=== PATIENT | female | born 1970 | race African-American/Black ===

== ENCOUNTER 2017-05-16 09:30 | Emergency (ER) | payer OTHER ==
[~2017-05-16 09:30] MED LIST: DICY20TA30 PO; PROM25TA10 PO
[2017-05-16 09:46] VITALS: BP 130/66
[2017-05-16] MEDS ORDERED: SULF1TAB24 PO (10:12)
--- NOTE | 2017-05-16 10:12 | PHYS DOC ---
Past Medical History Past Medical History: Hypertension Additional Past Medical Histor: ADHD Past Surgical History: Cholecystectomy, Alcohol Use: Heavy Drug Use: Cocaine Social History Narrative: denies at this time. Adult General Chief Complaint Chief Complaint: INSECT BITE HPI HPI Patient is a 47 year old female presents to the emergency department stating that she has an area on her right outer calf that appears to be red and swollen and tender. She states that she believes she was bit by a spider. She states this occurred approximately 3 days ago. She states that she's had some yellow drainage coming from the area. She denies any numbness or tingling going down into her lower extremity. She states her last tetanus shot was approximately one year ago. She denies fever, chills or any nausea vomiting. Review of Systems Review of Systems Constitutional: Denies fever or chills [] Eyes: Denies change in visual acuity, redness, or eye pain [] HENT: Denies nasal congestion or sore throat [] Respiratory: Denies cough or shortness of breath [] Cardiovascular: No additional information not addressed in HPI [] GI: Denies abdominal pain, nausea, vomiting, bloody stools or diarrhea [] : Denies dysuria or hematuria [] Musculoskeletal: Denies back pain or joint pain [] Integument: Denies rash or skin lesions. Right lower outer leg bit by a spider Neurologic: Denies headache, focal weakness or sensory changes [] Endocrine: Denies polyuria or polydipsia [] Allergies Allergies Allergies Coded Allergies Type Severity Reaction Last Updated Verified latex Allergy Intermediate 04/16/16 Yes Physical Exam Physical Exam Constitutional: Well developed, well nourished, no acute distress, non-toxic appearance. [] HENT: Normocephalic, atraumatic, bilateral external ears normal, oropharynx moist, no oral exudates, nose normal. [] Eyes: PERRLA, EOMI, conjunctiva normal, no discharge. [] Neck: Normal range of motion, no tenderness, supple, no stridor. [] Cardiovascular:Heart rate regular rhythm Lungs & Thorax: No respiratory distress noted Skin: Warm, dry, no erythema, no rash. Right lower third leg at the posterior lower aspect of the knee area appears to be red warm swollen tender to touch with no fluctuance noted. Area appears to be very taut. Back: No tenderness Extremities: No tenderness, no cyanosis, no clubbing, ROM intact, no edema. [] Neurologic: Alert and oriented X 3, normal motor function, normal sensory function, no focal deficits noted. [] Psychologic: Affect normal, judgement normal, mood normal. [] Current Patient Data Vital Signs Vital Signs Date Time Temp Pulse Resp B/P (MAP) Pulse Ox O2 Delivery O2 Flow Rate FiO2 05/16/17 09:46 97.7 54 20 99 Room Air 97.7 EKG EKG [] Radiology/Procedures Radiology/Procedures [] Course & Med Decision Making Course & Med Decision Making Pertinent Labs and Imaging studies reviewed. (See chart for details) Patient will be placed on Bactrim with recommendations for warm moist packs to the area 5 times a day. Patient will be discharged home in stable condition with recommendations for Tylenol or ibuprofen for pain and discomfort. Elevation as much as possible. Patient will be discharged home in stable condition. Signs and symptoms to return back to emergency department as been provided. All questions and concerns been answered at the patient's bedside. [] Dragon Disclaimer Dragon Disclaimer This electronic medical record was generated, in whole or in part, using a voice recognition dictation system. Departure Departure Impression: Primary Impression: Cellulitis and abscess of right leg Disposition: 01 HOME, SELF-CARE Condition: STABLE Referrals: SANDRA WATERS MD (PCP) Patient Instructions: Cellulitis, [id number] Additional Instructions: Activity as tolerated. Medications as prescribed. Warm moist packs to the area 5 times a day. Elevation as much as possible. Tylenol or ibuprofen for pain and discomfort. Follow-up through primary care physician in the next 3-5 days. Return back to emergency prior signs symptoms of become worse. Scripts Sulfamethoxazole/Trimethoprim (BACTRIM DS TABLET) 1 Each Tablet 1 TAB PO BID, #20 TAB Prov: RONEL COTA APRN 05/16/17 RONEL COTA APRN May 16, 2017 10:12
== END 2017-05-16 10:20 | disposition home or self-care (01) ==
LOC: ER 09:30
DX: L03.115 Cellulitis of right lower limb (principal); L02.415 Cutaneous abscess of right lower limb; I10 Essential (primary) hypertension; F90.9 Attention-deficit hyperactivity disorder, unspecified type; F10.10 Alcohol abuse, uncomplicated; Z91.040 Latex allergy status
CPT/HCPCS: 99283

== ENCOUNTER 2017-05-24 16:23 | Inpatient (IN) | payer OTHER ==
[~2017-05-24] VITALS: Ht 160 cm; Wt 67.2 kg
[~2017-05-24 16:23] MED LIST changes: +SULF1TAB24 PO
--- NOTE | 2017-05-24 16:40 | PHYS DOC ---
Past Medical History Past Medical History: Hypertension Additional Past Medical Histor: ADHD Past Surgical History: Cholecystectomy, , Hysterectomy Alcohol Use: Heavy Drug Use: Cocaine Adult General Chief Complaint Chief Complaint: LOWER EXTREMITY SWELLING HPI HPI Patient is a 47 year old female presents to the emergency department with a history of spider bite to the right lower posterior/outer calf. Patient was seen on 05/16 and placed on bactrim. She returns today with c/o leg feeling tight. States the pain has become worse and has increased in redness. No drainage or discharge from the site. Denies numbness or tingling in lower extremity. Peripheral pulse 2+. Patient states that her last tetanus shot was approximately one year ago. Review of Systems Review of Systems Constitutional: Denies fever or chills [] Eyes: Denies change in visual acuity, redness, or eye pain [] HENT: Denies nasal congestion or sore throat [] Respiratory: Denies cough or shortness of breath [] Cardiovascular: No additional information not addressed in HPI [] GI: Denies abdominal pain, nausea, vomiting, bloody stools or diarrhea [] : Denies dysuria or hematuria [] Musculoskeletal: Denies back pain or joint pain [] Integument: Denies rash or skin lesions. Redness, warmth tenderness increase pain to right lower leg. Neurologic: Denies headache, focal weakness or sensory changes [] Endocrine: Denies polyuria or polydipsia [] Current Medications Current Medications Current Medications Medications (Trade) Dose Ordered Sig/Alberto Start Time Stop Time Status Last Admin Dose Admin Acetaminophen/ Hydrocodone Bitart (Lortab 5/325) 1 tab Q4HRS PRN 05/24/17 16:45 UNV Clindamycin Phosphate 50 ml @ 100 mls/hr Q8HRS 05/24/17 22:00 UNV Allergies Allergies Allergies Coded Allergies Type Severity Reaction Last Updated Verified latex Allergy Intermediate 04/16/16 Yes Physical Exam Physical Exam Constitutional: Well developed, well nourished, no acute distress, non-toxic appearance. [] HENT: Normocephalic, atraumatic, bilateral external ears normal, oropharynx moist, no oral exudates, nose normal. [] Eyes: PERRLA, EOMI, conjunctiva normal, no discharge. [] Neck: Normal range of motion, no tenderness, supple, no stridor. [] Cardiovascular:Heart rate regular rhythm, no murmur [] Lungs & Thorax: Bilateral breath sounds clear to auscultation [] Skin: Warm, dry, no erythema, no rash. Patient with a area on the right lower calf area that ranges from the midcalf up to the creases the back of the knee lateral and posterior area of the leg that appears to be red warm very tired with a white center. No drainage or discharge coming from the site. Back: No tenderness Extremities: No tenderness, no cyanosis, no clubbing, ROM intact, no edema. Lower extremity pulses on the right are 2+ cap refill brisk less than 2 seconds. Patient was able to ambulate with a good steady gait. Neurologic: Alert and oriented X 3, normal motor function, normal sensory function, no focal deficits noted. [] Psychologic: Affect normal, judgement normal, mood normal. [] Current Patient Data Vital Signs Vital Signs Date Time Temp Pulse Resp B/P (MAP) Pulse Ox O2 Delivery O2 Flow Rate FiO2 05/24/17 16:32 98.8 63 18 129/76 (93) 99 Room Air 98.8 EKG EKG [] Radiology/Procedures Radiology/Procedures [] Course & Med Decision Making Course & Med Decision Making Pertinent Labs and Imaging studies reviewed. (See chart for details) CBC, CMP, blood cultures, saline lock, IV antibiotics, ultrasound have been ordered at this time. Patient will be placed on clindamycin call his been placed to the hospitalist for admission. Patient will be provided with by mouth pain medication, hydrocodone. [id number] spoke with in regards to admission for this patient. She agrees with admission at this time. She is aware the CMP he, CBC, cultures, ultrasound are pending at this time. Patient will be placed on clindamycin with orders placed. She'll also be provided with hydrocodone for pain and discomfort. Patient is aware of admission into the hospital for IV antibiotics. [] Dragon Disclaimer Dragon Disclaimer This electronic medical record was generated, in whole or in part, using a voice recognition dictation system. Departure Departure Referrals: SANDRA WATERS MD (PCP) RONEL COTA APRN May 24, 2017 16:40
[2017-05-24 17:07] LABS: BASO # 0.1 x10^3/uL (0.0-0.2); BASO % 1 % (0-3); EOS % 3 % (0-3); HEMATOCRIT 35.7 % (36.0-47.0); LYMPH # 3.6 x10^3/uL (1.0-4.8); LYMPH % 34 % (24-48); MEAN CORPUSCULAR HEMOGLOBIN 32 pg (25-35); MEAN CORPUSCULAR HGB CONC 34 g/dL (31-37); MEAN CORPUSCULAR VOLUME 94 fL (79-100); MONO % 6 % (0-9); NEUT % 57 % (31-73); PLATELET COUNT 372 x10^3/uL (140-400); RED CELL DISTRIBUTION WIDTH 14.4 % (11.5-14.5); WHITE BLOOD COUNT 10.8 x10^3/uL (4.0-11.0)
[2017-05-24] MEDS: HYDROcodone/APAP 5/325MG 1 TAB TABLET PO PRN (17:12)
[2017-05-24] MEDS: CLINDAMYCIN 600MG PREMIX 50 ML IV SCH (17:19)
[2017-05-24 17:36] LABS: CALCIUM 9.2 mg/dL (8.5-10.1); GFR 71.6; POTASSIUM 3.7 mmol/L (3.5-5.1)
[2017-05-24 17:39] LABS: ALBUMIN 3.3 g/dL (3.4-5.0); ALBUMIN/GLOBULIN RATIO 0.9 (1.0-1.7); TOTAL BILIRUBIN 0.1 mg/dL (0.2-1.0)
--- NOTE | 2017-05-24 17:59 | RAD ---
Examination: Limited ultrasound posterior right calf. HISTORY: History of lower lobe lower leg cellulitis, infection COMPARISON: None available FINDINGS: Ultrasound of the posterior calf in the region of swelling demonstrates diffuse edema in the soft tissue likely secondary to cellulitis. There is small amount of fluid identified along the soft tissue measuring 2.6 cm in longest dimension probably nonspecific edema secondary to infection. A focal well-formed abscess is not clearly identified. IMPRESSION: Diffuse edema identified in the posterior lower calf region probably secondary to soft tissue infection or cellulitis. Electronically signed by: Foster Robins MD (05/24/2017 5:55 PM) [facility]
[2017-05-24] MEDS ORDERED: KETOROLAC TROMETHAMINE 30 MG/ML INJ. IV PRN (18:45)
[2017-05-24] MEDS ORDERED: MORPHINE SULFATE 2 MG/ML DISP.SYRIN. IV PRN (18:45)
--- NOTE | 2017-05-24 18:52 | PDOC1 ---
History and Physical Date of Admission Date of Admission DATE: 05/24/17 TIME: 18:45 Identification/Chief Complaint Chief Complaint R calf swelling/wound worse Problems: Source Source: Caregiver, Chart review, Patient History of Present Illness History of Present Illness 47 y.o AA female, non diabetic, only HTN otherwise controlled, a week ago maybe started as a bite in posterior R calf, went to ER, dcd on PO bactrim. BUt swelling got worse, at one point drained some pus? or some fluid, reported low grade temp at home, Came back to ER and swelling and warmth more remarkable hence admitted for iV abx. US is neg for focal abscess but just shows diffuse subcutaneous swelling, WIll ask RN to connor the swelling so we can assess its improvement with IV abx started at ER. No pen allergies. BC drawn at ER prior to abx. Past Medical History Cardiovascular: No pertinent hx, HTN Pulmonary: No pertinent hx GI: No pertinent hx Heme/Onc: No pertinent hx Hepatobiliary: No pertinent hx Psych: No pertinent hx Rheumatologic: No pertinent hx Infectious disease: Bacterial vaginosis ENT: No pertinent hx Renal/: No pertinent hx Endocrine: No pertinent hx Dermatology: No pertinent hx Past Surgical History Past Surgical History: Hysterectomy, No pertinent history Family History Family History: High Cholestrol, Hypertension Social History Smoke: No ALCOHOL: none Drugs: None Current Medications Current Medications Current Medications Clindamycin Phosphate 50 ml @ 100 mls/hr Q8H IV Last administered on 05/24/17 17:19; Start 05/24/17 at 17:00 Acetaminophen/ Hydrocodone Bitart (Lortab 5/325) 1 tab PRN Q4HRS PRN PO pain Last administered on 05/24/17 17:12; Start 05/24/17 at 16:45 Active Scripts Active Bactrim Ds Tablet (Sulfamethoxazole/Trimethoprim) 1 Each Tablet 1 Tab PO BID Bentyl (Dicyclomine Hcl) 20 Mg Tablet 20 Mg PO QID Promethazine Hcl 25 Mg Tablet 1 Tab PO PRN Q6HRS Allergies Allergies: Coded Allergies: latex (Verified Allergy, Intermediate, 04/16/16) ROS Review of System as per HPI,a ll else is neg Physical Exam General: Alert, Oriented X3, Cooperative, No acute distress HEENT: Atraumatic, PERRLA, EOMI Lungs: Clear to auscultation, Normal air movement Heart: S1S2, RRR, no thrills, no rubs, no gallops, no murmurs Cardiovascular: S1, S2 Breasts: Normal, Rt breast nml w/o mass, Lt breast nml w/o mass, Nipples normal Abdomen: Normal bowel sounds, Soft, No tenderness, No hepatosplenomegaly, No masses Rectal Exam: not examined Skin: Other (RT posterior calf is warm, swollen and very tender to touch with visible punctum draining some milky fluid, tender when pressed, no María's sign) Neuro: Normal gait, Normal speech, Strength at 5/5 X4 ext, Normal tone, Sensation intact, Cranial nerves 3-12 NL, Reflexes 2+ Vitals Vitals Vital Signs Date Time Temp Pulse Resp B/P (MAP) Pulse Ox O2 Delivery O2 Flow Rate FiO2 05/24/17 16:32 98.8 63 18 129/76 (93) 99 Room Air 98.8 Labs Labs Laboratory Tests Test 05/24/17 16:50 White Blood Count 10.8 x10^3/uL (4.0-11.0) Red Blood Count 3.80 x10^6/uL (3.50-5.40) Hemoglobin 12.0 g/dL (12.0-15.5) Hematocrit 35.7 % (36.0-47.0) Mean Corpuscular Volume 94 fL (79-100) Mean Corpuscular Hemoglobin 32 pg (25-35) Mean Corpuscular Hemoglobin Concent 34 g/dL (31-37) Red Cell Distribution Width 14.4 % (11.5-14.5) Platelet Count 372 x10^3/uL (140-400) Neutrophils (%) (Auto) 57 % (31-73) Lymphocytes (%) (Auto) 34 % (24-48) Monocytes (%) (Auto) 6 % (0-9) Eosinophils (%) (Auto) 3 % (0-3) Basophils (%) (Auto) 1 % (0-3) Neutrophils # (Auto) 6.1 x10^3uL (1.8-7.7) Lymphocytes # (Auto) 3.6 x10^3/uL (1.0-4.8) Monocytes # (Auto) 0.7 x10^3/uL (0.0-1.1) Eosinophils # (Auto) 0.3 x10^3/uL (0.0-0.7) Basophils # (Auto) 0.1 x10^3/uL (0.0-0.2) Sodium Level 140 mmol/L (136-145) Potassium Level 3.7 mmol/L (3.5-5.1) Chloride Level 103 mmol/L (98-107) Carbon Dioxide Level 30 mmol/L (21-32) Anion Gap 7 (6-14) Blood Urea Nitrogen 14 mg/dL (7-20) Creatinine 1.0 mg/dL (0.6-1.0) Estimated GFR (Cockcroft-Gault) 71.6 BUN/Creatinine Ratio 14 (6-20) Glucose Level 89 mg/dL (70-99) Calcium Level 9.2 mg/dL (8.5-10.1) Total Bilirubin 0.1 mg/dL (0.2-1.0) Aspartate Amino Transf (AST/SGOT) 18 U/L (15-37) Alanine Aminotransferase (ALT/SGPT) 26 U/L (14-59) Alkaline Phosphatase 87 U/L (46-116) Total Protein 7.0 g/dL (6.4-8.2) Albumin 3.3 g/dL (3.4-5.0) Albumin/Globulin Ratio 0.9 (1.0-1.7) Laboratory Tests Test 05/24/17 16:50 White Blood Count 10.8 x10^3/uL (4.0-11.0) Red Blood Count 3.80 x10^6/uL (3.50-5.40) Hemoglobin 12.0 g/dL (12.0-15.5) Hematocrit 35.7 % (36.0-47.0) Mean Corpuscular Volume 94 fL (79-100) Mean Corpuscular Hemoglobin 32 pg (25-35) Mean Corpuscular Hemoglobin Concent 34 g/dL (31-37) Red Cell Distribution Width 14.4 % (11.5-14.5) Platelet Count 372 x10^3/uL (140-400) Neutrophils (%) (Auto) 57 % (31-73) Lymphocytes (%) (Auto) 34 % (24-48) Monocytes (%) (Auto) 6 % (0-9) Eosinophils (%) (Auto) 3 % (0-3) Basophils (%) (Auto) 1 % (0-3) Neutrophils # (Auto) 6.1 x10^3uL (1.8-7.7) Lymphocytes # (Auto) 3.6 x10^3/uL (1.0-4.8) Monocytes # (Auto) 0.7 x10^3/uL (0.0-1.1) Eosinophils # (Auto) 0.3 x10^3/uL (0.0-0.7) Basophils # (Auto) 0.1 x10^3/uL (0.0-0.2) Sodium Level 140 mmol/L (136-145) Potassium Level 3.7 mmol/L (3.5-5.1) Chloride Level 103 mmol/L (98-107) Carbon Dioxide Level 30 mmol/L (21-32) Anion Gap 7 (6-14) Blood Urea Nitrogen 14 mg/dL (7-20) Creatinine 1.0 mg/dL (0.6-1.0) Estimated GFR (Cockcroft-Gault) 71.6 BUN/Creatinine Ratio 14 (6-20) Glucose Level 89 mg/dL (70-99) Calcium Level 9.2 mg/dL (8.5-10.1) Total Bilirubin 0.1 mg/dL (0.2-1.0) Aspartate Amino Transf (AST/SGOT) 18 U/L (15-37) Alanine Aminotransferase (ALT/SGPT) 26 U/L (14-59) Alkaline Phosphatase 87 U/L (46-116) Total Protein 7.0 g/dL (6.4-8.2) Albumin 3.3 g/dL (3.4-5.0) Albumin/Globulin Ratio 0.9 (1.0-1.7) VTE Prophylaxis Ordered VTE Prophylaxis Devices: Yes VTE Pharmacological Prophylaxi: Yes Assessment/Plan Assessment/Plan 1. RT posterior calf cellulitis and draining wound, minimal, no evidence of abscess on US - Agree with admission and starting systemic abx - connor the swelling so we can assess its improvement with IV abx - Held off sx consult as no visible drainable lesion on imaging, - may change pending her response to abx - follow BC - WOF GI upset or diarrhea with abx 2. HTN - controlled NO leukocytosis (WBC 20), no fevers MAy check ESR in next blood draw Seen at ER 6 MACO BEE MD May 24, 2017 18:52
[2017-05-24] MEDS ORDERED: PROMETHAZINE 12.5 MG TABLET. PO PRN (19:00)
[2017-05-24 19:30] VITALS: BP 143/67
[2017-05-24] MEDS: DICYCLOMINE HCL 10 MG CAPSULE PO SCH (20:01)
[2017-05-24 23:00] VITALS: BP 122/65
[2017-05-25] MEDS: CLINDAMYCIN 600MG PREMIX 50 ML IV SCH ×3 (00:30→17:23)
[2017-05-25 03:00] VITALS: BP 138/75
[2017-05-25 04:58] LABS: BASO # 0.1 x10^3/uL (0.0-0.2); BASO % 1 % (0-3); EOS % 4 % (0-3); HEMATOCRIT 34.3 % (36.0-47.0); HEMOGLOBIN 11.2 g/dL (12.0-15.5); LYMPH # 3.4 x10^3/uL (1.0-4.8); LYMPH % 38 % (24-48); MEAN CORPUSCULAR HEMOGLOBIN 31 pg (25-35); MEAN CORPUSCULAR HGB CONC 33 g/dL (31-37); MEAN CORPUSCULAR VOLUME 94 fL (79-100); MONO % 10 % (0-9); NEUT % 49 % (31-73); PLATELET COUNT 339 x10^3/uL (140-400); RED BLOOD COUNT 3.64 x10^6/uL (3.50-5.40); RED CELL DISTRIBUTION WIDTH 14.2 % (11.5-14.5); WHITE BLOOD COUNT 9.1 x10^3/uL (4.0-11.0)
[2017-05-25 05:25] LABS: CALCIUM 8.9 mg/dL (8.5-10.1); CREATININE 1.1 mg/dL (0.6-1.0); GFR 64.1
[2017-05-25] MEDS: HYDROcodone/APAP 5/325MG 1 TAB TABLET PO PRN ×2 (05:48→13:45)
[2017-05-25 07:00] VITALS: BP 134/62
[2017-05-25] MEDS: DICYCLOMINE HCL 10 MG CAPSULE PO SCH ×4 (09:26→21:00)
[2017-05-25 11:00] VITALS: BP 134/62
--- NOTE | 2017-05-25 11:11 | RAD ---
Right calf ultrasound, 05/25/2017: History: Swelling, possible spider bite The area of clinical concern in the posterior aspect of the upper calf was carefully scanned. There is a small, elongated, irregularly marginated hypoechoic area in the subcutaneous soft tissues extending along the superficial aspect of the calf musculature. It measures approximately 3 x 1.6 x 0.5 cm. The appearance suggests fluid such as a small hematoma, seroma or abscess. No other abnormality is seen.
--- NOTE | 2017-05-25 13:57 | PDOC2 ---
CONSULT Date of Consult Date of Consult DATE: 05/25/17 TIME: 13:54 Reason for Consult Reason for Consult: cellulitis Referring Physician Referring Physician: Dr Thakkar Identification/Chief Complaint Chief Complaint leg swelling Problems: Source Source: Chart review, Patient History of Present Illness Reason for Visit: Week history of right calf bite from insect/spider--developed drainage and swelling at home along with fevers and chills. Started on PO abx, however worsened and came back. Currently still having some pain, less swelling, and less drainage. Past Medical History Cardiovascular: No pertinent hx, HTN Pulmonary: No pertinent hx GI: No pertinent hx Heme/Onc: No pertinent hx Hepatobiliary: No pertinent hx Psych: No pertinent hx Rheumatologic: No pertinent hx Infectious disease: Bacterial vaginosis ENT: No pertinent hx Renal/: No pertinent hx Endocrine: No pertinent hx Dermatology: No pertinent hx Past Surgical History Past Surgical History: Hysterectomy, No pertinent history Family History Family History: High Cholestrol, Hypertension Social History No ALCOHOL: none Drugs: None Current Medications Current Medications Current Medications Clindamycin Phosphate 50 ml @ 100 mls/hr Q8H IV Last administered on 05/25/17 05:43; Start 05/24/17 at 17:00 Acetaminophen/ Hydrocodone Bitart (Lortab 5/325) 1 tab PRN Q4HRS PRN PO pain Last administered on 05/25/17 13:45; Start 05/24/17 at 16:45 Morphine Sulfate 2 mg PRN Q2HR PRN IV PAIN; Start 05/24/17 at 18:45 Ketorolac Tromethamine (Toradol) 30 mg PRN Q6HRS PRN IV PAIN Last administered on 05/24/17 20:01; Start 05/24/17 at 18:45; Stop 05/29/17 at 18:44 Dicyclomine HCl (Bentyl) 20 mg QID PO Last administered on 05/25/17 13:40; Start 05/24/17 at 21:00 Promethazine HCl (Phenergan) 25 mg PRN Q6HRS PRN PO NAUSEA/VOMITING; Start 05/24 at 19:00 Active Scripts Active Bactrim Ds Tablet (Sulfamethoxazole/Trimethoprim) 1 Each Tablet 1 Tab PO BID Bentyl (Dicyclomine Hcl) 20 Mg Tablet 20 Mg PO QID Promethazine Hcl 25 Mg Tablet 1 Tab PO PRN Q6HRS Allergies Allergies: Coded Allergies: latex (Verified Allergy, Intermediate, 04/16/16) ROS General: YES: Chills, Other (+ subjective fevers ) PSYCHOLOGICAL ROS: No: Anxiety, Depression Eyes: No Blurry vision, No Double vision HEENT: No: Heacaches, Sore Throat Hematological and Lymphatic: No: Bleeding Problems, Blood Clots Respiratory: No: Cough, Shortness of breath Cardiovascular: No Chest Pain, No Palpitations Gastrointestinal: No Nausea, No Abdominal Pain Genitourinary: No Dysuria, No Hematuria Musculoskeletal: Yes Joint Pain, Yes Muscle Pain Neurological: No Impaired Coord/balance, No Numbness/Tingling Skin: Yes Other (see hpi) Physical Exam General: Alert, Oriented X3, Cooperative, No acute distress HEENT: PERRLA, Mucous membr. moist/pink Lungs: Clear to auscultation, Normal air movement Heart: Regular rate, Normal S1, Normal S2, No murmurs Abdomen: Soft, No tenderness Extremities: Other (RLE calf with erythema and swelling, some drainage, no fluctuance ) Neuro: Normal speech, Sensation intact Psych/Mental Status: Mental status NL, Mood NL MUSCULOSKELETAL: No joint tenderness, No deformity Vitals VITALS Vital Signs Date Time Temp Pulse Resp B/P (MAP) Pulse Ox O2 Delivery O2 Flow Rate FiO2 05/25/17 13:45 Room Air 05/25/17 11:00 99.3 55 18 134/62 (86) 99 99.3 Labs Labs Laboratory Tests Test 05/24/17 16:50 05/25/17 04:29 White Blood Count 10.8 x10^3/uL (4.0-11.0) 9.1 x10^3/uL (4.0-11.0) Red Blood Count 3.80 x10^6/uL (3.50-5.40) 3.64 x10^6/uL (3.50-5.40) Hemoglobin 12.0 g/dL (12.0-15.5) 11.2 g/dL (12.0-15.5) Hematocrit 35.7 % (36.0-47.0) 34.3 % (36.0-47.0) Mean Corpuscular Volume 94 fL (79-100) 94 fL (79-100) Mean Corpuscular Hemoglobin 32 pg (25-35) 31 pg (25-35) Mean Corpuscular Hemoglobin Concent 34 g/dL (31-37) 33 g/dL (31-37) Red Cell Distribution Width 14.4 % (11.5-14.5) 14.2 % (11.5-14.5) Platelet Count 372 x10^3/uL (140-400) 339 x10^3/uL (140-400) Neutrophils (%) (Auto) 57 % (31-73) 49 % (31-73) Lymphocytes (%) (Auto) 34 % (24-48) 38 % (24-48) Monocytes (%) (Auto) 6 % (0-9) 10 % (0-9) Eosinophils (%) (Auto) 3 % (0-3) 4 % (0-3) Basophils (%) (Auto) 1 % (0-3) 1 % (0-3) Neutrophils # (Auto) 6.1 x10^3uL (1.8-7.7) 4.4 x10^3uL (1.8-7.7) Lymphocytes # (Auto) 3.6 x10^3/uL (1.0-4.8) 3.4 x10^3/uL (1.0-4.8) Monocytes # (Auto) 0.7 x10^3/uL (0.0-1.1) 0.9 x10^3/uL (0.0-1.1) Eosinophils # (Auto) 0.3 x10^3/uL (0.0-0.7) 0.3 x10^3/uL (0.0-0.7) Basophils # (Auto) 0.1 x10^3/uL (0.0-0.2) 0.1 x10^3/uL (0.0-0.2) Sodium Level 140 mmol/L (136-145) 143 mmol/L (136-145) Potassium Level 3.7 mmol/L (3.5-5.1) 4.0 mmol/L (3.5-5.1) Chloride Level 103 mmol/L (98-107) 105 mmol/L (98-107) Carbon Dioxide Level 30 mmol/L (21-32) 32 mmol/L (21-32) Anion Gap 7 (6-14) 6 (6-14) Blood Urea Nitrogen 14 mg/dL (7-20) 17 mg/dL (7-20) Creatinine 1.0 mg/dL (0.6-1.0) 1.1 mg/dL (0.6-1.0) Estimated GFR (Cockcroft-Gault) 71.6 64.1 BUN/Creatinine Ratio 14 (6-20) Glucose Level 89 mg/dL (70-99) 111 mg/dL (70-99) Calcium Level 9.2 mg/dL (8.5-10.1) 8.9 mg/dL (8.5-10.1) Total Bilirubin 0.1 mg/dL (0.2-1.0) Aspartate Amino Transf (AST/SGOT) 18 U/L (15-37) Alanine Aminotransferase (ALT/SGPT) 26 U/L (14-59) Alkaline Phosphatase 87 U/L (46-116) Total Protein 7.0 g/dL (6.4-8.2) Albumin 3.3 g/dL (3.4-5.0) Albumin/Globulin Ratio 0.9 (1.0-1.7) Laboratory Tests Test 05/24/17 16:50 05/25/17 04:29 White Blood Count 10.8 x10^3/uL (4.0-11.0) 9.1 x10^3/uL (4.0-11.0) Red Blood Count 3.80 x10^6/uL (3.50-5.40) 3.64 x10^6/uL (3.50-5.40) Hemoglobin 12.0 g/dL (12.0-15.5) 11.2 g/dL (12.0-15.5) Hematocrit 35.7 % (36.0-47.0) 34.3 % (36.0-47.0) Mean Corpuscular Volume 94 fL (79-100) 94 fL (79-100) Mean Corpuscular Hemoglobin 32 pg (25-35) 31 pg (25-35) Mean Corpuscular Hemoglobin Concent 34 g/dL (31-37) 33 g/dL (31-37) Red Cell Distribution Width 14.4 % (11.5-14.5) 14.2 % (11.5-14.5) Platelet Count 372 x10^3/uL (140-400) 339 x10^3/uL (140-400) Neutrophils (%) (Auto) 57 % (31-73) 49 % (31-73) Lymphocytes (%) (Auto) 34 % (24-48) 38 % (24-48) Monocytes (%) (Auto) 6 % (0-9) 10 % (0-9) Eosinophils (%) (Auto) 3 % (0-3) 4 % (0-3) Basophils (%) (Auto) 1 % (0-3) 1 % (0-3) Neutrophils # (Auto) 6.1 x10^3uL (1.8-7.7) 4.4 x10^3uL (1.8-7.7) Lymphocytes # (Auto) 3.6 x10^3/uL (1.0-4.8) 3.4 x10^3/uL (1.0-4.8) Monocytes # (Auto) 0.7 x10^3/uL (0.0-1.1) 0.9 x10^3/uL (0.0-1.1) Eosinophils # (Auto) 0.3 x10^3/uL (0.0-0.7) 0.3 x10^3/uL (0.0-0.7) Basophils # (Auto) 0.1 x10^3/uL (0.0-0.2) 0.1 x10^3/uL (0.0-0.2) Sodium Level 140 mmol/L (136-145) 143 mmol/L (136-145) Potassium Level 3.7 mmol/L (3.5-5.1) 4.0 mmol/L (3.5-5.1) Chloride Level 103 mmol/L (98-107) 105 mmol/L (98-107) Carbon Dioxide Level 30 mmol/L (21-32) 32 mmol/L (21-32) Anion Gap 7 (6-14) 6 (6-14) Blood Urea Nitrogen 14 mg/dL (7-20) 17 mg/dL (7-20) Creatinine 1.0 mg/dL (0.6-1.0) 1.1 mg/dL (0.6-1.0) Estimated GFR (Cockcroft-Gault) 71.6 64.1 BUN/Creatinine Ratio 14 (6-20) Glucose Level 89 mg/dL (70-99) 111 mg/dL (70-99) Calcium Level 9.2 mg/dL (8.5-10.1) 8.9 mg/dL (8.5-10.1) Total Bilirubin 0.1 mg/dL (0.2-1.0) Aspartate Amino Transf (AST/SGOT) 18 U/L (15-37) Alanine Aminotransferase (ALT/SGPT) 26 U/L (14-59) Alkaline Phosphatase 87 U/L (46-116) Total Protein 7.0 g/dL (6.4-8.2) Albumin 3.3 g/dL (3.4-5.0) Albumin/Globulin Ratio 0.9 (1.0-1.7) Assessment/Plan Assessment/Plan cellulitis, abscess RLE --spontaneous drainage US showing very small fluid collection continue abx no surgical plans at this time JAG JEAN [employer] May 25, 2017 13:57
--- NOTE | 2017-05-25 13:59 | PDOC ---
PROGRESS NOTES Chief Complaint Chief Complaint 1. RT posterior calf cellulitis and draining wound, minimal, no evidence of abscess on US 2. HTN - controlled History of Present Illness History of Present Illness Leg looks good actually after 24 hrs IV abx But called by RN earlier today bec of drainage from the lesion - did order GS consult - but wound actually looks good now PLAN: GS and cx of wound drainage COnt IV clinda Target home 48 hrs if cont to improve Follow BC Vitals Vitals Vital Signs Date Time Temp Pulse Resp B/P (MAP) Pulse Ox O2 Delivery O2 Flow Rate FiO2 05/25/17 13:45 Room Air 05/25/17 11:00 99.3 55 18 134/62 (86) 99 99.3 Physical Exam General: Alert, Oriented X3, Cooperative, No acute distress Heart: Regular rate, Normal S1, Normal S2, No murmurs Abdomen: Soft, No tenderness Extremities: Other (RLE calf with erythema and swelling, some drainage, no fluctuance ) Skin: Other (RT posterior calf is warm, swollen and very tender to touch with visible punctum draining some milky fluid, tender when pressed, no María's sign) Labs LABS Laboratory Tests Test 05/24/17 16:50 05/25/17 04:29 White Blood Count 10.8 x10^3/uL (4.0-11.0) 9.1 x10^3/uL (4.0-11.0) Red Blood Count 3.80 x10^6/uL (3.50-5.40) 3.64 x10^6/uL (3.50-5.40) Hemoglobin 12.0 g/dL (12.0-15.5) 11.2 g/dL (12.0-15.5) Hematocrit 35.7 % (36.0-47.0) 34.3 % (36.0-47.0) Mean Corpuscular Volume 94 fL (79-100) 94 fL (79-100) Mean Corpuscular Hemoglobin 32 pg (25-35) 31 pg (25-35) Mean Corpuscular Hemoglobin Concent 34 g/dL (31-37) 33 g/dL (31-37) Red Cell Distribution Width 14.4 % (11.5-14.5) 14.2 % (11.5-14.5) Platelet Count 372 x10^3/uL (140-400) 339 x10^3/uL (140-400) Neutrophils (%) (Auto) 57 % (31-73) 49 % (31-73) Lymphocytes (%) (Auto) 34 % (24-48) 38 % (24-48) Monocytes (%) (Auto) 6 % (0-9) 10 % (0-9) Eosinophils (%) (Auto) 3 % (0-3) 4 % (0-3) Basophils (%) (Auto) 1 % (0-3) 1 % (0-3) Neutrophils # (Auto) 6.1 x10^3uL (1.8-7.7) 4.4 x10^3uL (1.8-7.7) Lymphocytes # (Auto) 3.6 x10^3/uL (1.0-4.8) 3.4 x10^3/uL (1.0-4.8) Monocytes # (Auto) 0.7 x10^3/uL (0.0-1.1) 0.9 x10^3/uL (0.0-1.1) Eosinophils # (Auto) 0.3 x10^3/uL (0.0-0.7) 0.3 x10^3/uL (0.0-0.7) Basophils # (Auto) 0.1 x10^3/uL (0.0-0.2) 0.1 x10^3/uL (0.0-0.2) Sodium Level 140 mmol/L (136-145) 143 mmol/L (136-145) Potassium Level 3.7 mmol/L (3.5-5.1) 4.0 mmol/L (3.5-5.1) Chloride Level 103 mmol/L (98-107) 105 mmol/L (98-107) Carbon Dioxide Level 30 mmol/L (21-32) 32 mmol/L (21-32) Anion Gap 7 (6-14) 6 (6-14) Blood Urea Nitrogen 14 mg/dL (7-20) 17 mg/dL (7-20) Creatinine 1.0 mg/dL (0.6-1.0) 1.1 mg/dL (0.6-1.0) Estimated GFR (Cockcroft-Gault) 71.6 64.1 BUN/Creatinine Ratio 14 (6-20) Glucose Level 89 mg/dL (70-99) 111 mg/dL (70-99) Calcium Level 9.2 mg/dL (8.5-10.1) 8.9 mg/dL (8.5-10.1) Total Bilirubin 0.1 mg/dL (0.2-1.0) Aspartate Amino Transf (AST/SGOT) 18 U/L (15-37) Alanine Aminotransferase (ALT/SGPT) 26 U/L (14-59) Alkaline Phosphatase 87 U/L (46-116) Total Protein 7.0 g/dL (6.4-8.2) Albumin 3.3 g/dL (3.4-5.0) Albumin/Globulin Ratio 0.9 (1.0-1.7) Review of Systems Review of Systems Rt leg pain and soreness Comment Review of Relevant I have reviewed the following items connor (where applicable) has been applied. Labs Laboratory Tests Test 05/24/17 16:50 05/25/17 04:29 White Blood Count 10.8 x10^3/uL (4.0-11.0) 9.1 x10^3/uL (4.0-11.0) Red Blood Count 3.80 x10^6/uL (3.50-5.40) 3.64 x10^6/uL (3.50-5.40) Hemoglobin 12.0 g/dL (12.0-15.5) 11.2 g/dL (12.0-15.5) Hematocrit 35.7 % (36.0-47.0) 34.3 % (36.0-47.0) Mean Corpuscular Volume 94 fL (79-100) 94 fL (79-100) Mean Corpuscular Hemoglobin 32 pg (25-35) 31 pg (25-35) Mean Corpuscular Hemoglobin Concent 34 g/dL (31-37) 33 g/dL (31-37) Red Cell Distribution Width 14.4 % (11.5-14.5) 14.2 % (11.5-14.5) Platelet Count 372 x10^3/uL (140-400) 339 x10^3/uL (140-400) Neutrophils (%) (Auto) 57 % (31-73) 49 % (31-73) Lymphocytes (%) (Auto) 34 % (24-48) 38 % (24-48) Monocytes (%) (Auto) 6 % (0-9) 10 % (0-9) Eosinophils (%) (Auto) 3 % (0-3) 4 % (0-3) Basophils (%) (Auto) 1 % (0-3) 1 % (0-3) Neutrophils # (Auto) 6.1 x10^3uL (1.8-7.7) 4.4 x10^3uL (1.8-7.7) Lymphocytes # (Auto) 3.6 x10^3/uL (1.0-4.8) 3.4 x10^3/uL (1.0-4.8) Monocytes # (Auto) 0.7 x10^3/uL (0.0-1.1) 0.9 x10^3/uL (0.0-1.1) Eosinophils # (Auto) 0.3 x10^3/uL (0.0-0.7) 0.3 x10^3/uL (0.0-0.7) Basophils # (Auto) 0.1 x10^3/uL (0.0-0.2) 0.1 x10^3/uL (0.0-0.2) Sodium Level 140 mmol/L (136-145) 143 mmol/L (136-145) Potassium Level 3.7 mmol/L (3.5-5.1) 4.0 mmol/L (3.5-5.1) Chloride Level 103 mmol/L (98-107) 105 mmol/L (98-107) Carbon Dioxide Level 30 mmol/L (21-32) 32 mmol/L (21-32) Anion Gap 7 (6-14) 6 (6-14) Blood Urea Nitrogen 14 mg/dL (7-20) 17 mg/dL (7-20) Creatinine 1.0 mg/dL (0.6-1.0) 1.1 mg/dL (0.6-1.0) Estimated GFR (Cockcroft-Gault) 71.6 64.1 BUN/Creatinine Ratio 14 (6-20) Glucose Level 89 mg/dL (70-99) 111 mg/dL (70-99) Calcium Level 9.2 mg/dL (8.5-10.1) 8.9 mg/dL (8.5-10.1) Total Bilirubin 0.1 mg/dL (0.2-1.0) Aspartate Amino Transf (AST/SGOT) 18 U/L (15-37) Alanine Aminotransferase (ALT/SGPT) 26 U/L (14-59) Alkaline Phosphatase 87 U/L (46-116) Total Protein 7.0 g/dL (6.4-8.2) Albumin 3.3 g/dL (3.4-5.0) Albumin/Globulin Ratio 0.9 (1.0-1.7) Laboratory Tests Test 05/24/17 16:50 05/25/17 04:29 White Blood Count 10.8 x10^3/uL (4.0-11.0) 9.1 x10^3/uL (4.0-11.0) Red Blood Count 3.80 x10^6/uL (3.50-5.40) 3.64 x10^6/uL (3.50-5.40) Hemoglobin 12.0 g/dL (12.0-15.5) 11.2 g/dL (12.0-15.5) Hematocrit 35.7 % (36.0-47.0) 34.3 % (36.0-47.0) Mean Corpuscular Volume 94 fL (79-100) 94 fL (79-100) Mean Corpuscular Hemoglobin 32 pg (25-35) 31 pg (25-35) Mean Corpuscular Hemoglobin Concent 34 g/dL (31-37) 33 g/dL (31-37) Red Cell Distribution Width 14.4 % (11.5-14.5) 14.2 % (11.5-14.5) Platelet Count 372 x10^3/uL (140-400) 339 x10^3/uL (140-400) Neutrophils (%) (Auto) 57 % (31-73) 49 % (31-73) Lymphocytes (%) (Auto) 34 % (24-48) 38 % (24-48) Monocytes (%) (Auto) 6 % (0-9) 10 % (0-9) Eosinophils (%) (Auto) 3 % (0-3) 4 % (0-3) Basophils (%) (Auto) 1 % (0-3) 1 % (0-3) Neutrophils # (Auto) 6.1 x10^3uL (1.8-7.7) 4.4 x10^3uL (1.8-7.7) Lymphocytes # (Auto) 3.6 x10^3/uL (1.0-4.8) 3.4 x10^3/uL (1.0-4.8) Monocytes # (Auto) 0.7 x10^3/uL (0.0-1.1) 0.9 x10^3/uL (0.0-1.1) Eosinophils # (Auto) 0.3 x10^3/uL (0.0-0.7) 0.3 x10^3/uL (0.0-0.7) Basophils # (Auto) 0.1 x10^3/uL (0.0-0.2) 0.1 x10^3/uL (0.0-0.2) Sodium Level 140 mmol/L (136-145) 143 mmol/L (136-145) Potassium Level 3.7 mmol/L (3.5-5.1) 4.0 mmol/L (3.5-5.1) Chloride Level 103 mmol/L (98-107) 105 mmol/L (98-107) Carbon Dioxide Level 30 mmol/L (21-32) 32 mmol/L (21-32) Anion Gap 7 (6-14) 6 (6-14) Blood Urea Nitrogen 14 mg/dL (7-20) 17 mg/dL (7-20) Creatinine 1.0 mg/dL (0.6-1.0) 1.1 mg/dL (0.6-1.0) Estimated GFR (Cockcroft-Gault) 71.6 64.1 BUN/Creatinine Ratio 14 (6-20) Glucose Level 89 mg/dL (70-99) 111 mg/dL (70-99) Calcium Level 9.2 mg/dL (8.5-10.1) 8.9 mg/dL (8.5-10.1) Total Bilirubin 0.1 mg/dL (0.2-1.0) Aspartate Amino Transf (AST/SGOT) 18 U/L (15-37) Alanine Aminotransferase (ALT/SGPT) 26 U/L (14-59) Alkaline Phosphatase 87 U/L (46-116) Total Protein 7.0 g/dL (6.4-8.2) Albumin 3.3 g/dL (3.4-5.0) Albumin/Globulin Ratio 0.9 (1.0-1.7) Medications Current Medications Clindamycin Phosphate 50 ml @ 100 mls/hr Q8H IV Last administered on 05/25/17 05:43; Start 05/24/17 at 17:00 Acetaminophen/ Hydrocodone Bitart (Lortab 5/325) 1 tab PRN Q4HRS PRN PO pain Last administered on 05/25/17 13:45; Start 05/24/17 at 16:45 Morphine Sulfate 2 mg PRN Q2HR PRN IV PAIN; Start 05/24/17 at 18:45 Ketorolac Tromethamine (Toradol) 30 mg PRN Q6HRS PRN IV PAIN Last administered on 05/24/17 20:01; Start 05/24/17 at 18:45; Stop 05/29/17 at 18:44 Dicyclomine HCl (Bentyl) 20 mg QID PO Last administered on 05/25/17 13:40; Start 05/24/17 at 21:00 Promethazine HCl (Phenergan) 25 mg PRN Q6HRS PRN PO NAUSEA/VOMITING; Start 05/24 at 19:00 Active Scripts Active Bactrim Ds Tablet (Sulfamethoxazole/Trimethoprim) 1 Each Tablet 1 Tab PO BID Bentyl (Dicyclomine Hcl) 20 Mg Tablet 20 Mg PO QID Promethazine Hcl 25 Mg Tablet 1 Tab PO PRN Q6HRS Vitals/I & O Vital Sign - Last 24 Hours 05/24/17 05/24/17 05/24/17 05/24/17 16:32 19:30 20:00 23:00 Temp 98.8 98.1 97.9 98.8 98.1 97.9 Pulse 63 50 56 Resp 18 20 20 B/P (MAP) 129/76 (93) 143/67 (92) 122/65 (84) Pulse Ox 99 100 97 O2 Delivery Room Air Room Air Room Air Room Air 05/25/17 05/25/17 05/25/1717 03:00 05:48 07:00 07:10 Temp 97.5 99.0 97.5 99.0 Pulse 52 54 Resp 20 20 18 B/P (MAP) 138/75 (96) 134/62 (86) Pulse Ox 97 97 96 O2 Delivery Room Air Room Air Room Air Room Air 05/25/17 05/25/17 05/25/17 07:25 11:00 13:45 Temp 99.3 99.3 Pulse 55 Resp 18 B/P (MAP) 134/62 (86) Pulse Ox 99 O2 Delivery Room Air Room Air Room Air Intake and Output 05/25/17 05/25/17 05/26/17 14:59 22:59 06:59 Intake Total 240 ml Balance 240 ml MACO BEE MD May 25, 2017 13:59
[2017-05-25 15:00] VITALS: BP 135/56
[2017-05-25 19:00] VITALS: BP 136/62
[2017-05-25 23:00] VITALS: BP 145/64
[2017-05-26] MEDS: CLINDAMYCIN 600MG PREMIX 50 ML IV SCH ×2 (01:10→08:54)
[2017-05-26 03:00] VITALS: BP 128/61
[2017-05-26 07:00] VITALS: BP 143/76
[2017-05-26 08:02] LABS: BASO # 0.1 x10^3/uL (0.0-0.2); BASO % 1 % (0-3); EOS % 3 % (0-3); HEMATOCRIT 36.5 % (36.0-47.0); HEMOGLOBIN 11.9 g/dL (12.0-15.5); LYMPH # 3.2 x10^3/uL (1.0-4.8); LYMPH % 31 % (24-48); MEAN CORPUSCULAR HEMOGLOBIN 31 pg (25-35); MEAN CORPUSCULAR HGB CONC 33 g/dL (31-37); MEAN CORPUSCULAR VOLUME 94 fL (79-100); MONO % 9 % (0-9); NEUT % 57 % (31-73); PLATELET COUNT 361 x10^3/uL (140-400); RED BLOOD COUNT 3.88 x10^6/uL (3.50-5.40); RED CELL DISTRIBUTION WIDTH 14.5 % (11.5-14.5); WHITE BLOOD COUNT 10.4 x10^3/uL (4.0-11.0)
[2017-05-26 08:21] LABS: CALCIUM 8.3 mg/dL (8.5-10.1); CREATININE 0.9 mg/dL (0.6-1.0); GFR 80.9; POTASSIUM 3.8 mmol/L (3.5-5.1)
[2017-05-26] MEDS: DICYCLOMINE HCL 10 MG CAPSULE PO SCH (08:54)
--- NOTE | 2017-05-26 08:55 | PDOC ---
JAG JEAN AUDIO VISUAL TECHNICIAN 05/26/17 0855: SURGICAL PROGRESS NOTE Subjective tolerating diet some pain to site hoping to go home today Vital Signs Vital Signs Date Time Temp Pulse Resp B/P (MAP) Pulse Ox O2 Delivery O2 Flow Rate FiO2 05/26/17 07:15 Room Air 05/26/17 07:00 98.5 48 18 143/76 (98) 97 98.5 General: Alert, Oriented X3, Cooperative, No acute distress Skin: Other (RLE wound, open/drainage, no fluctaunce or induration) Labs Laboratory Tests Test 05/24/17 16:50 05/25/17 04:29 05/26/17 07:44 White Blood Count 10.8 x10^3/uL (4.0-11.0) 9.1 x10^3/uL (4.0-11.0) 10.4 x10^3/uL (4.0-11.0) Red Blood Count 3.80 x10^6/uL (3.50-5.40) 3.64 x10^6/uL (3.50-5.40) 3.88 x10^6/uL (3.50-5.40) Hemoglobin 12.0 g/dL (12.0-15.5) 11.2 g/dL (12.0-15.5) 11.9 g/dL (12.0-15.5) Hematocrit 35.7 % (36.0-47.0) 34.3 % (36.0-47.0) 36.5 % (36.0-47.0) Mean Corpuscular Volume 94 fL (79-100) 94 fL (79-100) 94 fL (79-100) Mean Corpuscular Hemoglobin 32 pg (25-35) 31 pg (25-35) 31 pg (25-35) Mean Corpuscular Hemoglobin Concent 34 g/dL (31-37) 33 g/dL (31-37) 33 g/dL (31-37) Red Cell Distribution Width 14.4 % (11.5-14.5) 14.2 % (11.5-14.5) 14.5 % (11.5-14.5) Platelet Count 372 x10^3/uL (140-400) 339 x10^3/uL (140-400) 361 x10^3/uL (140-400) Neutrophils (%) (Auto) 57 % (31-73) 49 % (31-73) 57 % (31-73) Lymphocytes (%) (Auto) 34 % (24-48) 38 % (24-48) 31 % (24-48) Monocytes (%) (Auto) 6 % (0-9) 10 % (0-9) 9 % (0-9) Eosinophils (%) (Auto) 3 % (0-3) 4 % (0-3) 3 % (0-3) Basophils (%) (Auto) 1 % (0-3) 1 % (0-3) 1 % (0-3) Neutrophils # (Auto) 6.1 x10^3uL (1.8-7.7) 4.4 x10^3uL (1.8-7.7) 5.9 x10^3uL (1.8-7.7) Lymphocytes # (Auto) 3.6 x10^3/uL (1.0-4.8) 3.4 x10^3/uL (1.0-4.8) 3.2 x10^3/uL (1.0-4.8) Monocytes # (Auto) 0.7 x10^3/uL (0.0-1.1) 0.9 x10^3/uL (0.0-1.1) 0.9 x10^3/uL (0.0-1.1) Eosinophils # (Auto) 0.3 x10^3/uL (0.0-0.7) 0.3 x10^3/uL (0.0-0.7) 0.3 x10^3/uL (0.0-0.7) Basophils # (Auto) 0.1 x10^3/uL (0.0-0.2) 0.1 x10^3/uL (0.0-0.2) 0.1 x10^3/uL (0.0-0.2) Sodium Level 140 mmol/L (136-145) 143 mmol/L (136-145) 141 mmol/L (136-145) Potassium Level 3.7 mmol/L (3.5-5.1) 4.0 mmol/L (3.5-5.1) 3.8 mmol/L (3.5-5.1) Chloride Level 103 mmol/L (98-107) 105 mmol/L (98-107) 105 mmol/L (98-107) Carbon Dioxide Level 30 mmol/L (21-32) 32 mmol/L (21-32) 29 mmol/L (21-32) Anion Gap 7 (6-14) 6 (6-14) 7 (6-14) Blood Urea Nitrogen 14 mg/dL (7-20) 17 mg/dL (7-20) 14 mg/dL (7-20) Creatinine 1.0 mg/dL (0.6-1.0) 1.1 mg/dL (0.6-1.0) 0.9 mg/dL (0.6-1.0) Estimated GFR (Cockcroft-Gault) 71.6 64.1 80.9 BUN/Creatinine Ratio 14 (6-20) Glucose Level 89 mg/dL (70-99) 111 mg/dL (70-99) 105 mg/dL (70-99) Calcium Level 9.2 mg/dL (8.5-10.1) 8.9 mg/dL (8.5-10.1) 8.3 mg/dL (8.5-10.1) Total Bilirubin 0.1 mg/dL (0.2-1.0) Aspartate Amino Transf (AST/SGOT) 18 U/L (15-37) Alanine Aminotransferase (ALT/SGPT) 26 U/L (14-59) Alkaline Phosphatase 87 U/L (46-116) Total Protein 7.0 g/dL (6.4-8.2) Albumin 3.3 g/dL (3.4-5.0) Albumin/Globulin Ratio 0.9 (1.0-1.7) Laboratory Tests Test 05/26/17 07:44 White Blood Count 10.4 x10^3/uL (4.0-11.0) Red Blood Count 3.88 x10^6/uL (3.50-5.40) Hemoglobin 11.9 g/dL (12.0-15.5) Hematocrit 36.5 % (36.0-47.0) Mean Corpuscular Volume 94 fL (79-100) Mean Corpuscular Hemoglobin 31 pg (25-35) Mean Corpuscular Hemoglobin Concent 33 g/dL (31-37) Red Cell Distribution Width 14.5 % (11.5-14.5) Platelet Count 361 x10^3/uL (140-400) Neutrophils (%) (Auto) 57 % (31-73) Lymphocytes (%) (Auto) 31 % (24-48) Monocytes (%) (Auto) 9 % (0-9) Eosinophils (%) (Auto) 3 % (0-3) Basophils (%) (Auto) 1 % (0-3) Neutrophils # (Auto) 5.9 x10^3uL (1.8-7.7) Lymphocytes # (Auto) 3.2 x10^3/uL (1.0-4.8) Monocytes # (Auto) 0.9 x10^3/uL (0.0-1.1) Eosinophils # (Auto) 0.3 x10^3/uL (0.0-0.7) Basophils # (Auto) 0.1 x10^3/uL (0.0-0.2) Sodium Level 141 mmol/L (136-145) Potassium Level 3.8 mmol/L (3.5-5.1) Chloride Level 105 mmol/L (98-107) Carbon Dioxide Level 29 mmol/L (21-32) Anion Gap 7 (6-14) Blood Urea Nitrogen 14 mg/dL (7-20) Creatinine 0.9 mg/dL (0.6-1.0) Estimated GFR (Cockcroft-Gault) 80.9 Glucose Level 105 mg/dL (70-99) Calcium Level 8.3 mg/dL (8.5-10.1) Problem List cellulitis/abscess--draining wound care, abx no surgical plans Problems: YAZ FLORES MD 05/26/17 1344: SURGICAL PROGRESS NOTE Assessment/Plan pt seen agree with above f/u in office next week Problems: JAG JEAN AUDIO VISUAL TECHNICIAN May 26, 2017 08:55 YAZ FLORES MD May 26, 2017 13:44
[2017-05-26 11:00] VITALS: BP 148/76
[2017-05-26] MEDS ORDERED: OXYC-323 PO (12:52)
[2017-05-26] MEDS ORDERED: CLIN300C8 PO (12:52)
--- NOTE | 2017-05-26 12:55 | PDOC3 ---
Discharge Summary Visit Information Date of Admission: May 24, 2017 Date of Discharge: May 26, 2017 Admitting Diagnosis Comment: 1. RT posterior calf cellulitis and draining wound, minimal, no evidence of abscess on US, better 2. HTN - controlled Brief Hospital Course Allergies Allergies Coded Allergies Type Severity Reaction Last Updated Verified latex Allergy Intermediate 04/16/16 Yes Vital Signs Vital Signs Date Time Temp Pulse Resp B/P (MAP) Pulse Ox O2 Delivery O2 Flow Rate FiO2 05/26/17 07:15 Room Air 05/26/17 07:00 98.5 48 18 143/76 (98) 97 98.5 Lab Results Laboratory Tests Test 05/24/17 16:50 05/25/17 04:29 05/26/17 07:44 White Blood Count 10.8 x10^3/uL (4.0-11.0) 9.1 x10^3/uL (4.0-11.0) 10.4 x10^3/uL (4.0-11.0) Red Blood Count 3.80 x10^6/uL (3.50-5.40) 3.64 x10^6/uL (3.50-5.40) 3.88 x10^6/uL (3.50-5.40) Hemoglobin 12.0 g/dL (12.0-15.5) 11.2 g/dL (12.0-15.5) 11.9 g/dL (12.0-15.5) Hematocrit 35.7 % (36.0-47.0) 34.3 % (36.0-47.0) 36.5 % (36.0-47.0) Mean Corpuscular Volume 94 fL (79-100) 94 fL (79-100) 94 fL (79-100) Mean Corpuscular Hemoglobin 32 pg (25-35) 31 pg (25-35) 31 pg (25-35) Mean Corpuscular Hemoglobin Concent 34 g/dL (31-37) 33 g/dL (31-37) 33 g/dL (31-37) Red Cell Distribution Width 14.4 % (11.5-14.5) 14.2 % (11.5-14.5) 14.5 % (11.5-14.5) Platelet Count 372 x10^3/uL (140-400) 339 x10^3/uL (140-400) 361 x10^3/uL (140-400) Neutrophils (%) (Auto) 57 % (31-73) 49 % (31-73) 57 % (31-73) Lymphocytes (%) (Auto) 34 % (24-48) 38 % (24-48) 31 % (24-48) Monocytes (%) (Auto) 6 % (0-9) 10 % (0-9) 9 % (0-9) Eosinophils (%) (Auto) 3 % (0-3) 4 % (0-3) 3 % (0-3) Basophils (%) (Auto) 1 % (0-3) 1 % (0-3) 1 % (0-3) Neutrophils # (Auto) 6.1 x10^3uL (1.8-7.7) 4.4 x10^3uL (1.8-7.7) 5.9 x10^3uL (1.8-7.7) Lymphocytes # (Auto) 3.6 x10^3/uL (1.0-4.8) 3.4 x10^3/uL (1.0-4.8) 3.2 x10^3/uL (1.0-4.8) Monocytes # (Auto) 0.7 x10^3/uL (0.0-1.1) 0.9 x10^3/uL (0.0-1.1) 0.9 x10^3/uL (0.0-1.1) Eosinophils # (Auto) 0.3 x10^3/uL (0.0-0.7) 0.3 x10^3/uL (0.0-0.7) 0.3 x10^3/uL (0.0-0.7) Basophils # (Auto) 0.1 x10^3/uL (0.0-0.2) 0.1 x10^3/uL (0.0-0.2) 0.1 x10^3/uL (0.0-0.2) Sodium Level 140 mmol/L (136-145) 143 mmol/L (136-145) 141 mmol/L (136-145) Potassium Level 3.7 mmol/L (3.5-5.1) 4.0 mmol/L (3.5-5.1) 3.8 mmol/L (3.5-5.1) Chloride Level 103 mmol/L (98-107) 105 mmol/L (98-107) 105 mmol/L (98-107) Carbon Dioxide Level 30 mmol/L (21-32) 32 mmol/L (21-32) 29 mmol/L (21-32) Anion Gap 7 (6-14) 6 (6-14) 7 (6-14) Blood Urea Nitrogen 14 mg/dL (7-20) 17 mg/dL (7-20) 14 mg/dL (7-20) Creatinine 1.0 mg/dL (0.6-1.0) 1.1 mg/dL (0.6-1.0) 0.9 mg/dL (0.6-1.0) Estimated GFR (Cockcroft-Gault) 71.6 64.1 80.9 BUN/Creatinine Ratio 14 (6-20) Glucose Level 89 mg/dL (70-99) 111 mg/dL (70-99) 105 mg/dL (70-99) Calcium Level 9.2 mg/dL (8.5-10.1) 8.9 mg/dL (8.5-10.1) 8.3 mg/dL (8.5-10.1) Total Bilirubin 0.1 mg/dL (0.2-1.0) Aspartate Amino Transf (AST/SGOT) 18 U/L (15-37) Alanine Aminotransferase (ALT/SGPT) 26 U/L (14-59) Alkaline Phosphatase 87 U/L (46-116) Total Protein 7.0 g/dL (6.4-8.2) Albumin 3.3 g/dL (3.4-5.0) Albumin/Globulin Ratio 0.9 (1.0-1.7) Laboratory Tests Test 05/26/17 07:44 White Blood Count 10.4 x10^3/uL (4.0-11.0) Red Blood Count 3.88 x10^6/uL (3.50-5.40) Hemoglobin 11.9 g/dL (12.0-15.5) Hematocrit 36.5 % (36.0-47.0) Mean Corpuscular Volume 94 fL (79-100) Mean Corpuscular Hemoglobin 31 pg (25-35) Mean Corpuscular Hemoglobin Concent 33 g/dL (31-37) Red Cell Distribution Width 14.5 % (11.5-14.5) Platelet Count 361 x10^3/uL (140-400) Neutrophils (%) (Auto) 57 % (31-73) Lymphocytes (%) (Auto) 31 % (24-48) Monocytes (%) (Auto) 9 % (0-9) Eosinophils (%) (Auto) 3 % (0-3) Basophils (%) (Auto) 1 % (0-3) Neutrophils # (Auto) 5.9 x10^3uL (1.8-7.7) Lymphocytes # (Auto) 3.2 x10^3/uL (1.0-4.8) Monocytes # (Auto) 0.9 x10^3/uL (0.0-1.1) Eosinophils # (Auto) 0.3 x10^3/uL (0.0-0.7) Basophils # (Auto) 0.1 x10^3/uL (0.0-0.2) Sodium Level 141 mmol/L (136-145) Potassium Level 3.8 mmol/L (3.5-5.1) Chloride Level 105 mmol/L (98-107) Carbon Dioxide Level 29 mmol/L (21-32) Anion Gap 7 (6-14) Blood Urea Nitrogen 14 mg/dL (7-20) Creatinine 0.9 mg/dL (0.6-1.0) Estimated GFR (Cockcroft-Gault) 80.9 Glucose Level 105 mg/dL (70-99) Calcium Level 8.3 mg/dL (8.5-10.1) Brief Hospital Course Ms. Mckeon is a 47 old AA female, non diabetic, second visit to ER for Rt post calf cellulitis started as a spider bite, no white ct, no DM, drained some spontaneously but no abscess on US. CO managed with GS, non surgical, Failed OP bactrim so admitted with IV clinda, Better ,Swelling signif gone after 24-48 hrs IV abx, Able to walk now,. Will dc on PO clinda and percocet, Seen and examined Some constipation, educated on OTC stool regimen Dc 32 mins Dw hvac residential service technician Information Condition at Discharge: Improved, Stable Disposition/Orders: D/C to Home Scheduled Dicyclomine Hcl (Bentyl), 20 MG PO QID Promethazine Hcl (Promethazine Hcl), 1 TAB PO PRN Q6HRS Sulfamethoxazole/Trimethoprim (Bactrim Ds Tablet), 1 TAB PO BID MACO BEE MD May 26, 2017 12:55
--- NOTE | 2017-05-26 23:10 | ACF ---
Admission Forms Criteria CELLULITIS Clinical Indications for Admission to Inpatient Care ([place]/check or initial the applicable condition/criteria) Admission is indicated for ANY ONE of the following(1)(2)(3)(4)(5): [ ]I. Limb-threatening infection [ ]II. High-risk comorbid condition as indicated by ANY ONE of the following: [ ]a) Uncontrolled diabetes (eg, HbA1c greater than 10% (0.1)) [ ]b) Cirrhosis [ ]c) Neutropenia [ ]d) Asplenia(12) [ ]e) Immunosuppression [ ]f) Symptomatic heart failure [ ]III. Failure of outpatient therapy as indicated by ALL of the following(6): [ ]a) Progression or no improvement after adequate trial (minimum of 48 hours, with longer period for stable lower extremity infection) [ ]b) Adequate antibiotic regimen as indicated by use of ANY ONE of the following: [ ]i) First-generation cephalosporin (e.g., cephalexin) [ ]ii) Antistaphylococcal penicillin (e.g., dicloxacillin) [ ]iii) Penicillin-allergic patient regimen (clindamycin, extended-spectrum fluoroquinolone, or doxycycline) [ ]iv) Resistant organism (eg, methicillin-resistant Staphylococcus aureus) regimen (7)(8) [ ]c) Outpatient intravenous therapy regimen is not appropriate due to ANY ONE of the following. (9)(10) [ ]i) It was tried and was not successful (eg, progression of infection). [ ]ii) It is not available or cannot be arranged in a clinically appropriate time frame (e.g., the next day). [ ]iii) Clinical presentation (eg, acuity of infection, rapidity of progression, confirmed or suspected bacteremia) is judged to require ALL of the following: [ ]1) Immediate initiation of intravenous therapy ( eg, cannot wait for next day) [ ]2) Intensity of patient monitoring and observation (eg, vital sign measurement, checks for infection progression) that cannot be provided at other than inpatient level of care [ ]IV. Altered Mental status that is severe or persistent [ ]V. Bacteremia [ ]. Hemodynamic instability [ ]VII. Suspected necrotizing soft tissue infection (e.g., gas in tissue)(13)( 14)(15) [ ]VIII. Orbital infection (16)(17) [ ]XI. Associated surgical procedure (e.g., abscess drainage, debridement) not amenable to outpatient, emergency department, or observation care [ ]X. Cutaneous gangrene(19) [ ]XII. High fever (temperature greater than 39.5 degrees C (103.1 degrees F) (oral)) not responsive to outpatient, emergency department, or observation care therapy(20)(21) [X]XIII. Inpatient admission required [A]rather than observation care (Also use Cellulitis: Observation Care as appropriate) because of ANY ONE of the following(22)(23): [ ]a) Periorbital or perineal infection that is severe or worsening [X]b) Severe pain requiring acute inpatient management [ ]b) IV fluid to replace significant ongoing (e.g., for over 24 hours) losses (greater than 3 L/m2 per day) [ ]b) Compartment syndrome monitoring (24) [ ]b) Strict or protective (eg, laminar flow) isolation) [ ]b) Urgent debridement or skin grafting [ ]b) Bone or joint debridement [ ]b) Immediate inpatient surgery [ ]b) Other condition, treatment, or monitoring requiring inpatient admission Extended stay beyond goal length of stay may be needed for(18)(36)(37)(38)(39)( 40)(41) [ ]a) Necrotizing soft tissue infection or fasciitis(13)(42) [ ]b) Gram-negative infection [ ]c) Methicillin-resistant Staphylococcal aureus (MRSA) infection(7)(43) [ ]d) Peripheral venous insufficiency with cellulitis [ ]e) Extensive edema [ ]f) Sepsis or continued Hemodynamic instability [ ]g) Continued high fever or mental status change [ ]h) Bacteremia(43) [ ]i) Active serious comorbid conditions ( eg, heart failure, renal insufficiency) The original [facility] [employer] content created by [employer] has been revised. The portions of the content which have been revised are identified through the use of italic text, and [facility] has neither reviewed nor approved the modified material. All other unmodified content is copyright [facility] [employer] [employer] Please see references footnoted in the original [facility] [employer] edition 2014 Admission Criteria Met?: Yes SHEFALI JAMES May 26, 2017 23:10
== END 2017-05-26 15:17 | disposition home or self-care (01) | DRG 603 ==
LOC: ER 16:23 → 4 NORTH 16:43
PROVIDERS: ADMIT Internal Medicine; ATTEND Internal Medicine
DX: L03.115 Cellulitis of right lower limb (principal); I10 Essential (primary) hypertension; F14.90 Cocaine use, unspecified, uncomplicated; K30 Functional dyspepsia; F90.9 Attention-deficit hyperactivity disorder, unspecified type; K59.00 Constipation, unspecified; W57.XXXA Bitten or stung by nonvenomous insect and other nonvenomous arthropods, initial encounter; Z90.710 Acquired absence of both cervix and uterus; Z90.49 Acquired absence of other specified parts of digestive tract; Z82.49 Family history of ischemic heart disease and other diseases of the circulatory system; Z83.49 Family history of other endocrine, nutritional and metabolic diseases; Y93.89 Activity, other specified; Y92.009 Unspecified place in unspecified non-institutional (private) residence as the place of occurrence of the external cause; Y99.8 Other external cause status; Z91.040 Latex allergy status
CPT/HCPCS: 36415; 76881; 80048; 80053; 85025; 87040; 87205; J1885; J3490; 99285-25

== ENCOUNTER → 2018-05-28 | Outpatient (CLI) | payer OTHER ==
[~2018-05-28] MED LIST changes: +CLIN300C8 PO; +OXYC-323 PO
--- NOTE | 2018-05-28 11:40 | RAD ---
3 views lumbar spine 05/28/2018 INDICATION: Low back pain wrapping around the frontal legs. COMPARISON STUDY: None FINDINGS: No evidence of acute fracture or alignment abnormality of the lumbar spine is identified. Vertebral body heights are maintained. Lumbar disc spaces are grossly maintained. Minimal grade 1 anterolisthesis of L4 on L5 is noted. No definitive spondylolysis is seen. Facet arthrosis appears to be present at L4-5 and L5-S1. No acute soft tissue changes are seen. IMPRESSION: Mild degenerative changes of the lumbar spine, predominantly facet arthrosis, without evidence of acute fracture or alignment abnormality. Electronically signed by: Tee Tafoya MD (05/28/2018 11:36 AM) [facility]
== END | disposition home or self-care (01) ==
LOC: RAD 09:54
PROVIDERS: ATTEND Pediatrics
DX: M47.896 Other spondylosis, lumbar region (principal); I10 Essential (primary) hypertension; Z90.49 Acquired absence of other specified parts of digestive tract; Z90.710 Acquired absence of both cervix and uterus; Z87.891 Personal history of nicotine dependence; Z82.49 Family history of ischemic heart disease and other diseases of the circulatory system; Z83.49 Family history of other endocrine, nutritional and metabolic diseases
CPT/HCPCS: 72100

== ENCOUNTER 2018-06-09 10:01 | Emergency (ER) | payer OTHER ==
[~2018-06-09] VITALS: Ht 160 cm; Wt 67.1 kg
[2018-06-09 10:26] VITALS: BP 151/76
[2018-06-09] MEDS ORDERED: MORPHINE SULFATE 4 MG/ML VIAL. IV ONE (10:45)
[2018-06-09] MEDS ORDERED: DEXAMETHASONE SOD PHOS 20 MG/5 ML VIAL. IV ONE (10:45)
[2018-06-09] MEDS ORDERED: KETOROLAC 15 MG/ML VIAL. IV ONE (10:45)
[2018-06-09 11:24] LABS: BASO # 0.1 x10^3/uL (0.0-0.2); BASO % 1 % (0-3); EOS # 0.2 x10^3/uL (0.0-0.7); EOS % 2 % (0-3); HEMATOCRIT 36.8 % (36.0-47.0); HEMOGLOBIN 12.7 g/dL (12.0-15.5); LYMPH # 3.5 x10^3/uL (1.0-4.8); LYMPH % 30 % (24-48); MEAN CORPUSCULAR HEMOGLOBIN 32 pg (25-35); MEAN CORPUSCULAR HGB CONC 34 g/dL (31-37); MEAN CORPUSCULAR VOLUME 93 fL (79-100); MONO # 0.9 x10^3/uL (0.0-1.1); MONO % 7 % (0-9); NEUT # 7.1 x10^3uL (1.8-7.7); NEUT % 61 % (31-73); PLATELET COUNT 324 x10^3/uL (140-400); RED BLOOD COUNT 3.95 x10^6/uL (3.50-5.40); RED CELL DISTRIBUTION WIDTH 14.2 % (11.5-14.5); WHITE BLOOD COUNT 11.7 x10^3/uL (4.0-11.0)
[2018-06-09 11:32] LABS: CALCIUM 9.4 mg/dL (8.5-10.1); GFR 71.3; POTASSIUM 3.3 mmol/L (3.5-5.1)
[2018-06-09 11:38] LABS: ALBUMIN 3.6 g/dL (3.4-5.0); TOTAL BILIRUBIN 0.3 mg/dL (0.2-1.0); TOTAL PROTEIN 7.3 g/dL (6.4-8.2)
[2018-06-09] MEDS ORDERED: OXYC-328 PO (12:02)
[2018-06-09] MEDS ORDERED: PRED50TA PO (12:02)
--- NOTE | 2018-06-09 12:13 | PHYS DOC ---
Past Medical History Past Medical History: Hypertension Additional Past Medical Histor: ADHD Past Surgical History: Cholecystectomy, , Hysterectomy Alcohol Use: Heavy Drug Use: Cocaine Adult General Chief Complaint Chief Complaint: BACK PAIN - NO INJURY HPI HPI Patient is a 48 year old F WTIH BACK PAIN. His room 11. She has had back pain for over a month now. It got worse this morning one hour prior to arrival which try to orange picker her grandchild she had shooting pain up to her neck and down to both legs no bowel or bladder incontinence no numbness or tingling just the pain. Review of Systems Review of Systems Constitutional: Denies fever or chills [] Eyes: Denies change in visual acuity, redness, or eye pain [] HENT: Denies nasal congestion or sore throat [] Respiratory: Denies cough or shortness of breath [] Cardiovascular: No additional information not addressed in HPI [] GI: Denies abdominal pain, nausea, vomiting, bloody stools or diarrhea [] : Denies dysuria or hematuria [] All other systems were reviewed and found to be within normal limits, except as documented in this note. Current Medications Current Medications Current Medications Medications (Trade) Dose Ordered Sig/Alberto Start Time Stop Time Status Last Admin Dose Admin Dexamethasone Sodium Phosphate (Decadron) 10 mg 1X ONCE 06/09/18 10:45 06/09/18 10:46 DC 06/09/18 11:17 10 MG Ketorolac Tromethamine (Toradol 15mg Vial) 15 mg 1X ONCE 06/09/18 10:45 06/09/18 10:46 DC 06/09/18 11:15 15 MG Morphine Sulfate (Morphine Sulfate) 6 mg 1X ONCE 06/09/18 10:45 06/09/18 10:46 DC 06/09/18 11:20 6 MG Allergies Allergies Allergies Coded Allergies Type Severity Reaction Last Updated Verified latex Allergy Intermediate 04/16/16 Yes I S O L A T I O N *CONTACT* Allergy Unknown 05/30/17 Yes Physical Exam Physical Exam Constitutional: Well developed, well nourished, no acute distress, non-toxic appearance. [] HENT: Normocephalic, atraumatic, bilateral external ears normal, oropharynx moist, no oral exudates, nose normal. [] Eyes: PERRLA, EOMI, conjunctiva normal, no discharge. [] Neck: Normal range of motion, no tenderness, supple, no stridor. [] Cardiovascular:Heart rate regular rhythm, no murmur [] Lungs & Thorax: Bilateral breath sounds clear to auscultation [] Abdomen: Bowel sounds normal, soft, no tenderness, no masses, no pulsatile masses. [] Skin: Warm, dry, no erythema, no rash. [] Back: Midline and paraspinous tenderness bilaterally Extremities: No tenderness, no cyanosis, no clubbing, ROM intact, no edema. [] Neurologic: Alert and oriented X 3, normal motor function, normal sensory function, no focal deficits noted. []Motor function of the hips is slightly limited examination secondary to pain however distal sensation and motor function is intact and after pain medication the patient is able to ambulatory to the bathroom without difficulty. Psychologic: Affect normal, judgement normal, mood normal. [] Current Patient Data Vital Signs Vital Signs Date Time Temp Pulse Resp B/P (MAP) Pulse Ox O2 Delivery O2 Flow Rate FiO2 06/09/18 10:26 98.4 56 18 151/76 (101) 98 Room Air 98.4 Patient was advised for follow-up blood pressure within 1 month Lab Values Laboratory Tests Test 06/09/18 11:11 White Blood Count 11.7 x10^3/uL (4.0-11.0) H Red Blood Count 3.95 x10^6/uL (3.50-5.40) Hemoglobin 12.7 g/dL (12.0-15.5) Hematocrit 36.8 % (36.0-47.0) Mean Corpuscular Volume 93 fL (79-100) Mean Corpuscular Hemoglobin 32 pg (25-35) Mean Corpuscular Hemoglobin Concent 34 g/dL (31-37) Red Cell Distribution Width 14.2 % (11.5-14.5) Platelet Count 324 x10^3/uL (140-400) Neutrophils (%) (Auto) 61 % (31-73) Lymphocytes (%) (Auto) 30 % (24-48) Monocytes (%) (Auto) 7 % (0-9) Eosinophils (%) (Auto) 2 % (0-3) Basophils (%) (Auto) 1 % (0-3) Neutrophils # (Auto) 7.1 x10^3uL (1.8-7.7) Lymphocytes # (Auto) 3.5 x10^3/uL (1.0-4.8) Monocytes # (Auto) 0.9 x10^3/uL (0.0-1.1) Eosinophils # (Auto) 0.2 x10^3/uL (0.0-0.7) Basophils # (Auto) 0.1 x10^3/uL (0.0-0.2) Maternal Serum HCG Beta Subunit 2 mIU/mL (0-5) Sodium Level 140 mmol/L (136-145) Potassium Level 3.3 mmol/L (3.5-5.1) L Chloride Level 101 mmol/L (98-107) Carbon Dioxide Level 31 mmol/L (21-32) Anion Gap 8 (6-14) Blood Urea Nitrogen 20 mg/dL (7-20) Creatinine 1.0 mg/dL (0.6-1.0) Estimated GFR (Cockcroft-Gault) 71.3 BUN/Creatinine Ratio 20 (6-20) Glucose Level 88 mg/dL (70-99) Calcium Level 9.4 mg/dL (8.5-10.1) Total Bilirubin 0.3 mg/dL (0.2-1.0) Aspartate Amino Transferase (AST) 20 U/L (15-37) Alanine Aminotransferase (ALT) 22 U/L (14-59) Alkaline Phosphatase 70 U/L (46-116) Total Protein 7.3 g/dL (6.4-8.2) Albumin 3.6 g/dL (3.4-5.0) Albumin/Globulin Ratio 1.0 (1.0-1.7) Laboratory Tests 06/09/18 11:11 Laboratory Tests 06/09/18 11:11 EKG EKG [] Radiology/Procedures Radiology/Procedures [] Course & Med Decision Making Course & Med Decision Making Pertinent Labs and Imaging studies reviewed. (See chart for details) []Patient is given pain medication emergency room suspect disc herniation no signs of cauda equina clinically. Patient is well-appearing and will go home with oxycodone as well as a prednisone burst and is instructed to follow-up with primary care doctor for further imaging and treatment as indicated. Dragon Disclaimer Dragon Disclaimer This electronic medical record was generated, in whole or in part, using a voice recognition dictation system. Departure Departure Impression: Primary Impression: Back pain Additional Impression: Elevated blood pressure reading Disposition: HOME, SELF-CARE Condition: STABLE Patient Instructions: Back Pain, Adult, Ponc-ui-Cetw Scripts Prednisone (PREDNISONE) 50 Mg Tablet 1 TAB PO DAILY, #5 TAB Prov: JAY CASAS MD 06/09/18 Oxycodone/Apap 10-325 (PERCOCET 10-325 MG TABLET) 1 Each Tablet 1 TAB PO Q4-6HRS, #20 TAB Prov: JAY CASAS MD 06/09/18 Problem Qualifiers JAY CASAS MD Jun 09, 2018 12:13
== END 2018-06-09 12:13 | disposition home or self-care (01) ==
LOC: ER 10:01
DX: M54.9 Dorsalgia, unspecified (principal); R03.0 Elevated blood-pressure reading, without diagnosis of hypertension; I10 Essential (primary) hypertension; Z90.49 Acquired absence of other specified parts of digestive tract; Z90.710 Acquired absence of both cervix and uterus; Z91.040 Latex allergy status; Z88.8 Allergy status to other drugs, medicaments and biological substances
CPT/HCPCS: 36415; 80053; 84702; 85025; 96374; 96375; 99284; J1100; J1885; J2270

== ENCOUNTER → 2019-02-02 | Outpatient (CLI) | payer OTHER ==
[~2019-02-02] MED LIST changes: -OXYC-323 PO; +OXYC1TAB15 PO; +OXYC1TAB22 PO; +PRED50TA PO
--- NOTE | 2019-02-02 11:03 | RAD ---
EXAM: MRI RIGHT KNEE DATE: 02/02/2019 10:30 AM CLINICAL INDICATION: Medial right knee pain for 2 months COMPARISON: Radiographs 01/23/2019. TECHNIQUE: Multiplanar, multisequence MRI of the right knee was performed without contrast. FINDINGS: Small right knee joint effusion with associated synovial thickening/hypertrophy, likely synovitis. Small Pablo's cyst. Edema extending inferiorly along the leg likely from recent partial Pablo's cyst rupture. ACL and PCL are intact. The MCL, fibular collateral ligament, biceps femoris and IT band are intact. Neutral patellar tracking. Extensor mechanism is intact. Medial meniscus: Intact Lateral meniscus: Intact Full-thickness cartilage fissuring is seen at the patellar apex. There is also full-thickness cartilage defect at the central weightbearing surface of the medial femoral condyle. No evidence for fracture or osteonecrosis. IMPRESSION: 1. Small Pablo's cyst with edema extending inferiorly along the leg likely from recent partial rupture. 2. 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 3. Small knee joint effusion with associated synovial thickening/hypertrophy likely synovitis, nonspecific possibly inflammatory or degenerative. Electronically signed by: Grey Enrique MD (02/02/2019 11:00 AM) [id number]
--- NOTE | 2019-02-02 11:18 | RAD ---
MRI Lumbar Spine without contrast History: Low back pain, right leg radiculopathy Technique: Multiplanar, multi sequential noncontrast MR imaging was performed of the lumbar spine. Comparison: None Findings: Lumbar vertebral body stature is maintained. There is minimal grade 1 anterior spondylolisthesis L4-5, very minimal posterior subluxation L5 relative to S1. There is mild to moderate degenerative disc disease L4-5 and minimally L5-S1 greater posteriorly. Conus terminates at the mid L2 level. There is edema of the anterior superior corner of T12 more likely to be reactive/degenerative in etiology. There is also some edema of the bilateral L4 and L5 pedicles greater on the right with extent near the facet articular processes. L3-L4: Spinal canal and neural foramina are adequate. L4-L5: There is mild to moderate buckling of the ligamentum flavum and mild facet degenerative change. There is negligible disc osteophyte complex. There is superimposed shallow protrusion/small extrusion extending very slightly above the intervertebral disc space in the far right lateral recess and inferior right neural foramen with associated annular tear, contact of the undersurface exiting right L4 nerve root in the neural foramen with mild to moderate narrowing of the right neural foramen. There is also very shallow protrusion in the inferior left neural foramen superimposed on disc osteophyte complex with mild narrowing, light contact of the undersurface exiting left L4 nerve root. There is mild narrowing of the far right lateral recess. L5-S1: There is shallow bulge/broad protrusion superimposed on minimal disc osteophyte complex, mild indentation upon the ventral thecal sac, near the descending S1 nerve roots without significant impingement. There is very mild narrowing of the far lateral recesses greater on the right. There is minimal buckling of the ligamentum flavum. There is mild bilateral neural foramina compromise. IMPRESSION: 1. There is mild to moderate narrowing of the inferior right L4-5 neural foramen by protrusion/small extrusion extending very slightly above the intervertebral disc space, contact of the undersurface exiting right L4 nerve root. There is also mild bilateral neural foramina compromise at L5-S1 and on the left at L4-5 as described. 2. There is mild narrowing of the far right lateral recess L4-5, very mild narrowing of the far lateral recesses L5-S1. 3. There is mild abnormal alignment as stated, multilevel facet degenerative change greater inferiorly of the lumbar spine. 4. Nonspecific edema of the anterior superior corner of T12 is more likely be reactive/degenerative in etiology. There is also edema of the bilateral L4 and L5 pedicles with extent to the facet articular processes greater on the right, also likely reactive/degenerative in etiology. Electronically signed by: Mark Sharp MD (02/02/2019 11:15 AM) [facility]
== END | disposition home or self-care (01) ==
LOC: MRI 09:25
PROVIDERS: ATTEND Orthopaedic Surgery
DX: M51.17 Intervertebral disc disorders with radiculopathy, lumbosacral region (principal); M51.16 Intervertebral disc disorders with radiculopathy, lumbar region; M48.07 Spinal stenosis, lumbosacral region; M25.461 Effusion, right knee; M89.38 Hypertrophy of bone, other site; M71.21 Synovial cyst of popliteal space [Baker], right knee; M25.861 Other specified joint disorders, right knee; M94.261 Chondromalacia, right knee; M43.16 Spondylolisthesis, lumbar region; M25.761 Osteophyte, right knee
CPT/HCPCS: 72148; 73721

== ENCOUNTER 2019-09-11 15:29 | Emergency (ER) | payer MEDICAID, OTHER ==
[~2019-09-11] VITALS: Ht 160 cm; Wt 67.1 kg
[2019-09-11 16:00] VITALS: BP 132/74
--- NOTE | 2019-09-11 16:50 | RAD ---
Examination: 3 views of the left ankle, 2 views of the left tibia and fibula HISTORY: History of fall, pain COMPARISON: None available FINDINGS: The ankle mortise grossly appears unremarkable. There is no acute fracture or dislocation identified. IMPRESSION: No acute osseous findings. Electronically signed by: Foster Robins MD (09/11/2019 4:47 PM) [id number]
[2019-09-11] MEDS ORDERED: NAPROXEN 500 MG TABLET PO STA (17:09)
--- NOTE | 2019-09-11 17:09 | PHYS DOC ---
Past Medical History Past Medical History: Hypertension Additional Past Medical Histor: ADHD Past Surgical History: Cholecystectomy, , Hysterectomy Alcohol Use: Heavy Drug Use: Cocaine Adult General Chief Complaint Chief Complaint: LOWEREXTREMITY INJURY HPI HPI Patient is a 49 year old female who presents to the ED today complaining of mild to moderate intermittent pain around her distal left jones that began on Saturday, patient reports she had a syncope episode where she fell down hitting her jones on something. She reports she was admitted at [facility] and discharged the next day which is September 08. She states she's had intermittent pain around her jones since then. She is requesting x-rays. Denies any new injuries. She reports the pain is worse on touching the jones Review of Systems Review of Systems Constitutional: Denies fever or chills [] Musculoskeletal: Reports left jones pain Integument: Denies rash or skin lesions [] Neurologic: Denies headache, focal weakness or sensory changes [] All other systems were reviewed and found to be within normal limits, except as documented in this note. Allergies Allergies Allergies Coded Allergies Type Severity Reaction Last Updated Verified latex Allergy Intermediate 04/16/16 Yes I S O L A T I O N *CONTACT* Allergy Unknown 05/30/17 Yes Physical Exam Physical Exam Constitutional: Well developed, well nourished, no acute distress, non-toxic appearance. [] Skin: Warm, dry, no erythema, no rash. [] Back: No tenderness, no CVA tenderness. [] Extremities: Left lower extremity with no obvious deformity, tenderness on palpation of the left jones. Full range of motion to the left lower extremity. Negative Homans sign to the left lower extremity. +2 left pedal pulse. Cap refill less than 2 seconds and left lower extremity. Neurologic: Alert and oriented X 3, normal motor function, normal sensory function, no focal deficits noted. [] Psychologic: Affect normal, judgement normal, mood normal. [] Current Patient Data Vital Signs Vital Signs Date Time Temp Pulse Resp B/P (MAP) Pulse Ox O2 Delivery O2 Flow Rate FiO2 09/11/19 16:00 98.2 89 18 132/74 (93) 99 Room Air 98.2 EKG EKG [] Radiology/Procedures Radiology/Procedures []PROCEDURE: ANKLE LEFT 3V Examination: 3 views of the left ankle, 2 views of the left tibia and fibula HISTORY: History of fall, pain COMPARISON: None available FINDINGS: The ankle mortise grossly appears unremarkable. There is no acute fracture or dislocation identified. IMPRESSION: No acute osseous findings. Electronically signed by: Foster Robins MD (09/11/2019 4:47 PM) [id number] DICTATED and SIGNED BY: FOSTER ROBINS MD DATE: 09/11/191646 PROCEDURE: TIBIA FIBULA LEFT Examination: 3 views of the left ankle, 2 views of the left tibia and fibula HISTORY: History of fall, pain COMPARISON: None available FINDINGS: The ankle mortise grossly appears unremarkable. There is no acute fracture or dislocation identified. IMPRESSION: No acute osseous findings. Electronically signed by: Foster Robins MD (09/11/2019 4:47 PM) [id number] DICTATED and SIGNED BY: FOSTER ROBINS MD DATE: 09/11/191646 Course & Med Decision Making Course & Med Decision Making Pertinent Labs and Imaging studies reviewed. (See chart for details) This is a 49-year-old female patient presenting to the ED today with left jones pain that began on Saturday after she fell. She believes she hit her jones on something. Left tib-fib x-rays and left ankle x-rays are negative. Discharged to home. Ice elevation encouraged. Follow-up with orthopedic doctor in 1-2 weeks. Dragon Disclaimer Dragon Disclaimer This electronic medical record was generated, in whole or in part, using a voice recognition dictation system. Departure Departure Impression: Primary Impression: Left leg pain Disposition: HOME, SELF-CARE Condition: STABLE Referrals: ODILIA MUKHERJEE MD (PCP) WENDY MICHELE MD Follow-up in 1-2 weeks if pain persist Patient Instructions: Musculoskeletal Pain Additional Instructions: You were evaluated in the emergency room for jones pain. Your x-rays of the left lower extremity are negative for any acute findings. Take the prescribed medicine as needed for pain. Follow-up with your doctor in 1-2 weeks Scripts Diclofenac Potassium (DICLOFENAC POTASSIUM) 50 Mg Tablet 1 TAB PO BID, #20 TAB Prov: NATASHA ESTRELLA APRN 09/11/19 NATASHA ESTRELLA APRN Sep 11, 2019 17:09
[2019-09-11] MEDS ORDERED: DICL50TA2 PO (17:15)
[2019-09-11] MEDS ORDERED: HYDROcodone/APAP 5/325MG 1 TAB TABLET PO ONE (17:15)
== END 2019-09-11 17:23 | disposition home or self-care (01) ==
LOC: ER 15:29
DX: M79.605 Pain in left leg (principal); R55 Syncope and collapse; I10 Essential (primary) hypertension; Z91.81 History of falling; F10.20 Alcohol dependence, uncomplicated; Y90.9 Presence of alcohol in blood, level not specified; Z90.710 Acquired absence of both cervix and uterus; Z90.49 Acquired absence of other specified parts of digestive tract; Z91.040 Latex allergy status; Z91.041 Radiographic dye allergy status
CPT/HCPCS: 73590; 73610; 99284-25